=== PATIENT | male | born 1975 | race Native Hawaiian/Other Pacific Islander ===

== ENCOUNTER 2017-01-22 10:11 | Emergency (ER) | payer OTHER ==
[~2017-01-22] VITALS: Ht 182.9 cm; Wt 96.2 kg
[2017-01-22] MEDS ORDERED: AMLO10TA4 PO (10:24)
[2017-01-22] MEDS ORDERED: ATOR40TA29 PO (10:24)
[2017-01-22] MEDS ORDERED: INSU100C SQ (10:24)
--- NOTE | 2017-01-22 10:25 | NUR ---
DR Raya at the bedside for eval and exam.
[2017-01-22] MEDS ORDERED: LIDOCAINE HCL 2% 20 ML VIAL TP ONE (10:30)
[2017-01-22] MEDS ORDERED: LET TOPICAL SOLUTION 8 ML UDC TOP ONE (10:30)
[2017-01-22] MEDS ORDERED: SODIUM BICARBONATE 4.2 % (NEUT) 5 ML VIAL TP ONE (10:30)
[2017-01-22] MEDS ORDERED: SODIUM BICARBONATE 4.2 % (NEUT) 5 ML VIAL ONE (10:43)
[2017-01-22] MEDS ORDERED: LIDOCAINE HCL 2% 20 ML VIAL ONE (10:43)
[2017-01-22] MEDS ORDERED: LET TOPICAL SOLUTION 8 ML UDC ONE (10:43)
--- NOTE | 2017-01-22 11:39 | NUR ---
at the bedside for report.
[2017-01-22] MEDS ORDERED: NEOMY/BACITRA/POLYMYXIN B OINT UD PACKET TP ONE ×2 (12:00→12:11)
--- NOTE | 2017-01-22 13:55 | NUR ---
MD REMOVED C COLLAR, PT TOLORATED WELL.
--- NOTE | 2017-01-22 14:08 | NUR ---
Patient discharged to home in stable conditon. Written and verbal after care instructions given. Patient verbalizes understanding of instructions. Pt left ER w/ steady gait accompained by family.
[2017-01-22 14:09] VITALS: BP 142/77
== END 2017-01-22 14:10 | disposition home or self-care (01) ==
LOC: ER 10:11
DX: S61.302A Unspecified open wound of right middle finger with damage to nail, initial encounter (principal); S23.3XXA Sprain of ligaments of thoracic spine, initial encounter; S13.4XXA Sprain of ligaments of cervical spine, initial encounter; S20.219A Contusion of unspecified front wall of thorax, initial encounter; S80.212A Abrasion, left knee, initial encounter; Z79.4 Long term (current) use of insulin; E11.9 Type 2 diabetes mellitus without complications; V23.4XXA Motorcycle driver injured in collision with car, pick-up truck or van in traffic accident, initial encounter; Y93.89 Activity, other specified; Y92.413 State road as the place of occurrence of the external cause; Y99.9 Unspecified external cause status
CPT/HCPCS: 71010; 72072; 73130; 93005; A4217; A4663; J3490